=== PATIENT | male | born 1980 | race Caucasian/White ===

== ENCOUNTER 2017-12-23 16:44 | Emergency (ER) | payer OTHER ==
[2017-12-23] MEDS ORDERED: NORMAL SALINE 1000 ML 1,000 ML IV ONE (16:57)
[2017-12-23] MEDS ORDERED: MORPHINE SULFATE 10 MG/ML INJ IV ONE (16:57)
[2017-12-23] MEDS ORDERED: ONDANSETRON HCL INJ/PF 4 MG/2 ML SDV IV ONE (16:58)
--- NOTE | 2017-12-23 17:14 | ER Document Report ---
ED Allergic Reaction - General Chief Complaint: Allergic Reaction Stated Complaint: POSSIBLE ALLERGIC REACTION Time Seen by Provider: 12/23/17 16:51 Mode of Arrival: Stretcher Information source: Patient, Emergency Med Personnel TRAVEL OUTSIDE OF THE [place] IN LAST 30 DAYS: No - HPI Onset: This afternoon Onset/Duration: Sudden Quality of pain: Sharp Severity: Mild Pain Level: 2 Identified cause: Yes - Bee sting Other exposure: Bee Sting Skin rash / itching: Extremities, "Redness", "Hives" Swelling: Hands Associated symptoms: None Similar symptoms previously: No Recently seen / treated by doctor: No - Related Data Allergies/Adverse Reactions: No Known Allergies Allergy (Verified 04/25/15 13:13) Past Medical History - Social History Smoking Status: Unknown if Ever Smoked Family History: None Musculoskeletal Medical History: Reports Hx Musculoskeletal Deformity, Reports Hx Musculoskeletal Trauma Psychiatric Medical History: Reports: Hx Anxiety - JULY 2013, Hx Post Traumatic Stress Disorder - DX JULY 2013 Past Surgical History: Reports: Hx Abdominal Surgery - APPENDIX, Hx Appendectomy , Hx Oral Surgery - ROOOT CANAL, Hx Orthopedic Surgery. Denies: Hx Adenoidectomy - Immunizations Immunizations up to date: Yes Hx Diphtheria, Pertussis, Tetanus Vaccination: Yes Review of Systems - Review of Systems Constitutional: denies: Chills, Fever EENT: denies: Eye pain, Eye discharge Cardiovascular: No symptoms reported Respiratory: No symptoms reported Gastrointestinal: No symptoms reported Genitourinary: No symptoms reported Musculoskeletal: No symptoms reported Skin: Rash Hematologic/Lymphatic: No symptoms reported Neurological/Psychological: No symptoms reported -: Yes All other systems reviewed and negative Physical Exam - Vital signs Vitals: Temp 98.6 F 12/23/17 17:00 - General General appearance: Appears well, Alert In distress: None - HEENT Head: Normocephalic, Atraumatic Eyes: Normal Pupils: PERRL - Respiratory Respiratory status: No respiratory distress Chest status: Nontender Breath sounds: Normal Chest palpation: Normal - Cardiovascular Rhythm: Regular Heart sounds: Normal auscultation Murmur: No - Abdominal Inspection: Normal Distension: No distension Bowel sounds: Normal Tenderness: Nontender Organomegaly: No organomegaly - Back Back: Normal, Nontender - Extremities General upper extremity: Normal inspection, Nontender, Normal color, Normal ROM , Normal temperature General lower extremity: Normal inspection, Nontender, Normal color, Normal ROM , Normal temperature, Normal weight bearing. No: Harpreet's sign - Neurological Neuro grossly intact: Yes Cognition: Normal Orientation: AAOx4 [place] Coma Scale Eye Opening: Spontaneous [place] Coma Scale Verbal: Oriented [place] Coma Scale Motor: Obeys Commands Roxann Coma Scale Total: 15 Speech: Normal Motor strength normal: LUE, RUE, LLE, RLE Sensory: Normal - Psychological Associated symptoms: Normal affect, Normal mood - Skin Skin Temperature: Warm Skin Moisture: Dry Skin Color: Erythema Skin Turgor: Elastic Skin irregularity: Erythema Location of irregularity: Extremities Character of irregularity: Urticarial Irregularity with: Swelling Course - Vital Signs Vital signs: Temp Pulse Resp BP Pulse Ox 98.6 F 28 H 145/86 H 96 12/23/17 17:00 12/23/17 22:01 12/23/17 22:01 12/23/17 22:01 - Laboratory Result Diagrams: 12/23/17 16:35 12/23/17 16:35 Laboratory results interpreted by me: 12/23/17 12/23/17 16:35 16:35 WBC 15.4 H RDW 14.3 H Absolute Neutrophils 9.3 H Sodium 146.0 H Chloride 109 H ALT 18 L - Transfer of Care Notes: 12/23/17 22:19 Patient feels much better I would like to go home. I will go ahead and discharge him home with his significant other. Discharge - Discharge Clinical Impression: Allergic reaction to bee sting Condition: Stable Disposition: HOME, SELF-CARE Instructions: Acute Allergic Reaction ([facility]) Additional Instructions: Please follow-up with your primary doctor tomorrow morning. Return to the emergency room if condition worsens. Prescriptions: Diphenhydramine HCl [Benadryl 25 mg Capsule] 1 cap PO Q4 PRN #15 cap PRN Reason: allergic reaction Epinephrine [Epipen 2-Rahul] 0.3 mg SQ ONCE PRN #2 auto.injct PRN Reason: allergic reaction Famotidine [Pepcid 40 mg Tablet] 40 mg PO DAILY #6 tablet Ketorolac Tromethamine [Toradol 10 mg Tablet] 10 mg PO Q8H PRN #10 tablet PRN Reason: pain Prednisone [Deltasone 20 mg Tablet] 3 tab PO DAILY 4 Days #12 tablet Forms: Return to Work
[2017-12-23 17:37] LABS: ABSOLUTE BASOPHILS # (AUTO) 0.1 10^3/uL (0.0-0.2); ABSOLUTE EOSINOPHILS # (AUTO) 0.4 10^3/uL (0.0-0.6); ABSOLUTE LYMPHOCYTES (AUTO) 4.4 10^3/uL (0.5-4.7); ABSOLUTE MONOCYTES (AUTO) 1.3 10^3/uL (0.1-1.4); ABSOLUTE NEUT (AUTO) 9.3 10^3/uL (1.7-8.2); BASOPHILS % (AUTO) 0.4 % (0-2); EOSINOPHILS % (AUTO) 2.6 % (0-6); HEMATOCRIT 40.1 % (37.9-51.0); HEMOGLOBIN 13.5 g/dL (13.5-17.0); LYMPHOCYTES % (AUTO) 28.4 % (13-45); MEAN CORPUSCULAR HEMOGLOBIN 29.5 pg (27.0-33.4); MEAN CORPUSCULAR HGB CONC 33.7 g/dL (32.0-36.0); MEAN CORPUSCULAR VOLUME 88 fl (80-97); MONOCYTES % (AUTO) 8.3 % (3-13); PLATELET COUNT 220 10^3/uL (150-450); RED BLOOD COUNT 4.58 10^6/uL (4.35-5.55); RED CELL DISTRIBUTION WIDTH 14.3 % (11.5-14.0); SEGMENTED NEUTROPHILS % (AUTO) 60.3 % (42-78); TOTAL CELLS COUNTED % (AUTO) 100 %; WHITE BLOOD COUNT 15.4 10^3/uL (4.0-10.5)
[2017-12-23 18:09] LABS: ALANINE AMINOTRANSFERASE 18 U/L (21-72); ALKALINE PHOSPHATASE 46 U/L (38-126); ANION GAP 9 (5-19); ASPARTATE AMINO TRANSFERASE 26 U/L (17-59); BILIRUBIN,DIRECT 0.3 mg/dL (0.0-0.4); BILIRUBIN,TOTAL 0.4 mg/dL (0.2-1.3); BLOOD UREA NITROGEN 15 mg/dL (7-20); CALCIUM 9.2 mg/dL (8.4-10.2); CARBON DIOXIDE 28 mmol/L (22-30); CHLORIDE 109 mmol/L (98-107); GLUCOSE 100 mg/dL (75-110); POTASSIUM 3.9 mmol/L (3.6-5.0); TOTAL PROTEIN 7.1 g/dL (6.3-8.2)
[2017-12-23] MEDS ORDERED: KETOROLAC TROMETHAMINE INJ/PF 30 MG/1 ML SDV IV ONE (20:09)
[2017-12-23 22:27] VITALS: BP 145/86
== END 2017-12-23 22:33 | disposition home or self-care (01) ==
LOC: ER 16:44
DX: T63.441A Toxic effect of venom of bees, accidental (unintentional), initial encounter (principal)
CPT/HCPCS: 99285; 96361; 96374; 96375; 36415; 85025; 80053; J1885; J2270; J2405; J7030

== ENCOUNTER → 2018-08-30 | Outpatient (CLI) | payer OTHER ==
--- NOTE | 2018-08-31 18:21 | XCELERA REPORT ---
[address] [address] Transthoracic Echocardiogram Report Name: KP LOTT Age: 37 yrs Gender: Male : 1980 Patient Status: Outpatient Patient Location: Study Date: 08/30/2018 09:41 AM Height: 65 in Weight: 140 lb BSA: 1.7 m2 Procedure: A complete two-dimensional transthoracic echocardiogram was performed (2D, M-mode, spectral and color flow Doppler). The study was technically adequate with some images being suboptimal in quality. Reason For Study: CHF Ordering Physician: PÉREZ SIDDIQUI Performed By: Jerica Cardoza Interpretation Summary The left ventricular ejection fraction is normal. LV diastolic function could not be adequately assessed. The left ventricle is grossly normal size. There is normal left ventricular wall thickness. Wall motion cannot be accurately commented on, but no definite regional wall motion abnormalities noted. The right ventricular systolic function is normal. The left atrial size is normal. The right atrium is normal. There is a trace amount of mitral regurgitation There is no mitral valve stenosis. No aortic regurgitation is present. There is no aortic valve stenosis There is a trace or physiologic amount of tricuspid regurgitation Tricuspid regurgitation jet envelope not well defined to measure RV systolic pressure accurately. The aortic root is not well visualized but is probably normal size. The inferior vena cava appeared normal and decreased > 50% with respiration (RAP 5-10 mmHg) Minimal pericardial effusion. MMode/2D Measurements & Calculations RVDd: 1.8 cm LVIDd: 5.1 cm FS: 39.4 % Ao root diam: IVSd: 0.54 cm LVIDs: 3.1 cm EDV(Teich): 3.0 cm 126.3 ml Ao root area: LVPWd: 0.79 cm ESV(Teich): 38.4 ml6.9 cm2 EF(Teich): 69.6 % EDV(MOD-sp4): SV(MOD-sp4): 85.8 ml 62.9 ml ESV(MOD-sp4): 22.8 ml EF(MOD-sp4): 73.4 % Doppler Measurements & Calculations MV E max osman: MV dec slope: Ao V2 max: LV V1 max P.0 cm/sec 122.9 cm/sec 4.0 mmHg MV A max osman: 470.4 cm/sec2 Ao max PG: LV V1 max: 56.5 cm/sec MV dec time: 0.14 sec6.0 mmHg 99.6 cm/sec MV E/A: 1.2 PA V2 max: 94.0 cm/sec PA max P.5 mmHg Left Ventricle The left ventricle is grossly normal size. There is normal left ventricular wall thickness. The left ventricular ejection fraction is normal. LV diastolic function could not be adequately assessed. Wall motion cannot be accurately commented on, but no definite regional wall motion abnormalities noted. Right Ventricle The right ventricle is normal in size, thickness and function. There is normal right ventricular wall thickness. The right ventricular systolic function is normal. Atria The right atrium is normal. The left atrial size is normal. Mitral Valve The mitral valve is grossly normal. There is no mitral valve stenosis. There is a trace amount of mitral regurgitation. Aortic Valve The aortic valve is grossly normal. There is no aortic valve stenosis. No aortic regurgitation is present. Tricuspid Valve The tricuspid valve is not well visualized, but is grossly normal. There is no tricuspid stenosis. There is a trace or physiologic amount of tricuspid regurgitation. Tricuspid regurgitation jet envelope not well defined to measure RV systolic pressure accurately. Pulmonic Valve The pulmonic valve is not well visualized. Great Vessels The aortic root is not well visualized but is probably normal size. The inferior vena cava appeared normal and decreased > 50% with respiration (RAP 5-10 mmHg). Effusions Minimal pericardial effusion. : PÉREZ SIDDIQUI > Domi Castillo
== END ==
LOC: SP 09:30
DX: Z98.890 Other specified postprocedural states (principal); I31.3 Pericardial effusion (noninflammatory); F43.10 Post-traumatic stress disorder, unspecified; R41.3 Other amnesia
CPT/HCPCS: 93306

== ENCOUNTER 2020-05-20 23:21 | Emergency (ER) | payer OTHER ==
[2020-05-20 23:55] VITALS: BP 122/88
[2020-05-21] MEDS ORDERED: HYDROCODONE/ACETAMINOPHEN 5-325 MG TABLET PO ONE (00:13)
--- NOTE | 2020-05-21 00:16 | ER Document Report ---
ED Medical Screen (RME) - General Chief Complaint: Groin Pain Stated Complaint: GROIN PAIN Time Seen by Provider: 05/21/20 00:09 Primary Care Provider: PÉREZ SIDDIQUI MD [Primary Care Provider] - Follow up as needed Mode of Arrival: Ambulatory Information source: Patient Notes: HPI; 39-year-old male presents to the emergency room complaining of pain and swelling to the left groin area that started earlier today. Denies any trauma or injury. No urinary symptoms. States he woke up this morning and noticed a small area of swelling which is gotten progressively worse throughout the day. Denies nausea, vomiting, no heavy lifting pushing pulling no history of hernias. PE: Alert and oriented x3. Lungs: Clear to auscultation without rales, rhonchi, wheezes. Heart: Regular rate rhythm without murmurs, rubs, gallops. Motor amount of swelling is noted to the left groin region that is hard and tender to palpation. I have greeted and performed a rapid initial assessment of this patient. A comprehensive ED assessment and evaluation of the patient, analysis of test results and completion of the medical decision making process will be conducted by additional ED providers. I have specifically instructed the patient or family members with the patient to immediately return to any nursing staff should anything change in the patient's condition or with their chief complaint. TRAVEL OUTSIDE OF THE [place] IN LAST 30 DAYS: No - Related Data Allergies/Adverse Reactions: No Known Allergies Allergy (Verified 04/25/15 13:13) Past Medical History Renal/ Medical History: Denies: Hx Peritoneal Dialysis Musculoskeltal Medical History: Reports Hx Musculoskeletal Deformity, Reports Hx Musculoskeletal Trauma Psychiatric Medical History: Reports: Hx Anxiety - JULY 2013, Hx Post Traumatic Stress Disorder - DX JULY 2013 Past Surgical History: Reports: Hx Abdominal Surgery - APPENDIX, Hx Appendectomy, Hx Oral Surgery - ROOOT CANAL, Hx Orthopedic Surgery. Denies: Hx Adenoidectomy - Immunizations Immunizations up to date: Yes Hx Diphtheria, Pertussis, Tetanus Vaccination: Yes Physical Exam - Vital signs Vitals: Temp Pulse Resp BP Pulse Ox 98.8 F 104 H 16 122/88 H 99 05/20/20 23:43 05/20/20 23:43 05/20/20 23:43 05/20/20 23:43 12/28/20 23:43 Course - Vital Signs Vital signs: Temp Pulse Resp BP Pulse Ox 98.8 F 104 H 16 122/88 H 99 05/20/20 23:43 05/20/20 23:43 05/20/20 23:43 05/20/20 23:43 05/20/20 23:43 Doctor's Discharge - Discharge Referrals: PÉREZ SIDDIQUI MD [Primary Care Provider] - Follow up as needed
[2020-05-21 00:42] LABS: ABSOLUTE EOSINOPHILS # (AUTO) 0.4 10^3/uL (0.0-0.6); ABSOLUTE LYMPHOCYTES (AUTO) 2.7 10^3/uL (0.5-4.7); ABSOLUTE MONOCYTES (AUTO) 1.3 10^3/uL (0.1-1.4); ABSOLUTE NEUT (AUTO) 6.3 10^3/uL (1.7-8.2); BASOPHILS % (AUTO) 0.4 % (0-2); EOSINOPHILS % (AUTO) 3.8 % (0-6); HEMATOCRIT 41.2 % (37.9-51.0); HEMOGLOBIN 14.3 g/dL (13.5-17.0); LYMPHOCYTES % (AUTO) 24.9 % (13-45); MEAN CORPUSCULAR HEMOGLOBIN 29.9 pg (27.0-33.4); MEAN CORPUSCULAR HGB CONC 34.7 g/dL (32.0-36.0); MEAN CORPUSCULAR VOLUME 86 fl (80-97); MONOCYTES % (AUTO) 12.1 % (3-13); PLATELET COUNT 181 10^3/uL (150-450); RED BLOOD COUNT 4.77 10^6/uL (4.35-5.55); RED CELL DISTRIBUTION WIDTH 13.8 % (11.5-14.0); SEGMENTED NEUTROPHILS % (AUTO) 58.8 % (42-78); TOTAL CELLS COUNTED % (AUTO) 100 %; WHITE BLOOD COUNT 10.8 10^3/uL (4.0-10.5)
[2020-05-21 00:50] LABS: APPEARANCE,URINE CLEAR; BILIRUBIN,URINE NEGATIVE (NEGATIVE); COLOR,URINE YELLOW; GLUCOSE, URINE NEGATIVE (NEGATIVE); KETONES,URINE NEGATIVE (NEGATIVE); LEUKOCYTE ESTERASE,URINE MODERATE (NEGATIVE); NITRITE,URINE NEGATIVE (NEGATIVE); PROTEIN,URINE 30 mg/dL (NEGATIVE); URINE SPECIFIC GRAVITY 1.027
[2020-05-21 01:22] LABS: ALBUMIN 4.6 g/dL (3.5-5.0); ALKALINE PHOSPHATASE 62 U/L (38-126); ANION GAP 9 (5-19); ASPARTATE AMINO TRANSFERASE 23 U/L (17-59); BILIRUBIN,DIRECT 0.2 mg/dL (0.0-0.4); BILIRUBIN,TOTAL 0.6 mg/dL (0.2-1.3); BLOOD UREA NITROGEN 12 mg/dL (7-20); CALCIUM 9.6 mg/dL (8.4-10.2); CARBON DIOXIDE 31 mmol/L (22-30); CHLORIDE 104 mmol/L (98-107); GLUCOSE 100 mg/dL (75-110); POTASSIUM 4.5 mmol/L (3.6-5.0); TOTAL PROTEIN 7.9 g/dL (6.3-8.2)
--- NOTE | 2020-05-21 02:47 | RADIOLOGY REPORT (SQ) ---
EXAM DESCRIPTION: CT ABDOMEN PELVIS WITH IV CONTRAST COMPLETED DATE/TME: 05/21/2020 01:57 CLINICAL HISTORY: 39 years, Male, left groin pain TECHNIQUE: Contiguous axial CT images of the abdomen and pelvis. Intravenous contrast: Present. Oral contrast: Absent. DLP 565 mGy-cm. This exam was performed according to our departmental dose-optimization program, which includes automated exposure control, adjustment of the mA and/or kV according to patient size and/or use of iterative reconstruction technique. COMPARISON: None. FINDINGS: Lower chest: Partially imaged. Lung bases: Unremarkable. Cardiac apex: Unremarkable. Solid abdominal viscera: Liver: 1 cm hypodensity likely representing a cyst or hemangioma. Gallbladder: Unremarkable. Pancreas: Unremarkable. Spleen: Unremarkable. Adrenal glands: Unremarkable. Right kidney: No hydronephrosis. Left kidney: No hydronephrosis. 3.5 cm cyst Urinary bladder: Unremarkable. Abdominal aorta: Unremarkable. Peritoneal: Free fluid: None. Free air: None. Other: No pathologic sized lymph nodes in the upper abdomen. Inflammation along the left groin with adjacent lymph nodes measuring up to 2.0 cm. No focal fluid collection or abscess. Bowel: Stomach: Unremarkable. Small bowel: Unremarkable. Appendix: Appendectomy. Colon: Unremarkable. Rectum: Unremarkable. Prostate: Unremarkable. Bones: Unremarkable. IMPRESSION: Inflammation along the left groin with adjacent reactive lymph nodes likely related to cellulitis. No focal fluid collection or abscess.
== END 2020-05-21 04:00 | disposition left against medical advice (07) ==
LOC: ER 23:21
DX: R10.30 Lower abdominal pain, unspecified (principal)
CPT/HCPCS: 36415; 74177; 80053; 81001; 85025; 99281